=== PATIENT | male | born 1985 | race Caucasian/White ===

== ENCOUNTER 2016-06-19 21:24 | Emergency (ER) | payer BC ==
[2016-06-19 21:54] VITALS: BP 108/65; PULSE 77; RESP 20; TEMP 98
[2016-06-19] MEDS ORDERED: SULFAMETHOX-TMP 800-160MG 1 EACH TAB PO STA (22:21)
--- NOTE | 2016-06-19 22:27 | ED ---
Skin/Abscess/FB HPI - General Chief complaint: Skin/Abscess/Foreign Body Stated complaint: Lump on lower back Time Seen by Provider: 06/19/16 22:02 Source: patient Mode of arrival: ambulatory Limitations: no limitations - History of Present Illness Initial comments: Patient is a 30-year-old white male presenting to the emergency department with complaints of a pimple to his lower back. Patient states he has had the pimple for probably 2 months but over the last couple of days it started to become more painful and red. Patient states that he had his son attempted to drain the pimple at home but it was too painful. Patient denies similar symptoms in the past. Patient denies history of MRSA. Patient denies recent illness, fevers, nausea, vomiting, shortness breath, chest pain, abdominal pain, or myalgias. Patient states his tetanus shot was less than 5 years ago. Patient denies recent antibiotic use. MD complaint: abscess/boil - Related Data Previous Rx's Medication Instructions Recorded Sulfamethox-Tmp 800-160Mg [Bactrim 1 tab PO Q12HR #20 tab 06/19/16 DS 800-160 mg] Allergies Allergy/AdvReac Type Severity Reaction Status Date / Time venom-honey bee Allergy Swelling Verified 06/19/16 21:54 [bee venom (honey bee)] amoxicillin [Amoxicillin] AdvReac Rash/Hives Verified 06/19/16 21:54 Penicillins AdvReac Rash/Hives Verified 06/19/16 21:54 Review of Systems ROS Statement: Those systems with pertinent positive or pertinent negative responses have been documented in the HPI. ROS Other: All systems not noted in ROS Statement are negative. Past Medical History Past Medical History: No Reported History Additional Past Medical History / Comment(s): BURPING ALOT, EXCESS GAS. History of Any Multi-Drug Resistant Organisms: None Reported Past Surgical History: No Surgical Hx Reported Additional Past Surgical History / Comment(s): EXC WISDOM TEETH Past Anesthesia/Blood Transfusion Reactions: No Reported Reaction Past Psychological History: Depression Smoking Status: Current every day smoker Past Alcohol Use History: None Reported Past Drug Use History: None Reported - Past Family History Mother Family Medical History: No Reported History General Exam - General Exam Comments Initial Comments: GENERAL: Pt awake and alert, well-appearing, well-nourished, and in no acute distress. HEAD: Atraumatic, normocephalic. EYES: Pupils equal, round, and reactive to light, extraocular movements intact, sclera anicteric, conjunctiva are normal. ENT: Oropharynx clear without exudates. Moist mucous membranes. NECK:Supple without lymphadenopathy or JVD. LUNGS: Breath sounds clear to auscultation bilaterally. No wheezes, rales, or rhonchi. HEART: Heart S1, S2, no S3 or S4. Regular rate and rhythm. No murmurs, rubs or gallops. ABDOMEN: Soft, nontender, nondistended, normoactive bowel sounds. No guarding, no rebound. No masses or organomegaly appreciated. EXTREMITIES: Palpable peripheral pulses. No edema. No calf tenderness. NEUROLOGICAL: Pt oriented x 3. No focal deficits noted. Strength and sensation grossly intact. PSYCH: Normal mood, normal affect. SKIN: Warm, dry, intact. 1 cm abscess with minimal induration and minimal erythema noted to mid lower back with small amount of purulent drainage. Limitations: no limitations Course Vital Signs 06/19/16 21:52 Temperature 98.0 F Pulse Rate 77 Respiratory 20 Rate Blood Pressure 108/65 O2 Sat by Pulse 99 Oximetry Procedures - Incision & Drainage Consent Obtained: verbal consent Time Out Performed?: No Indication: Abscess Site: other (Lower back) Anesthetic Used: lidocaine 1% Amount (mLs): 1 I&D Cleaning Method: Alcohol Wipe, Iodine Sterile Field Used?: Yes Scalpel Used: #11 Needle Aspiration Performed?: No Irrigation Performed?: Yes I&D Drainage Obtained: Blood Culture Obtained?: Yes Patient Tolerated Procedure: well, no complications Medical Decision Making - Medical Decision Making Abscess to mid lower back. Incision and drainage performed at bedside. Patient tolerated well. Patient discharged home on Bactrim and instructed to follow-up with primary care physician. Patient agreed with treatment plan. Patient instructed to return to the emergency department with new or worsening symptoms. Discharge instructions and return parameters reviewed. Disposition Clinical Impression: Abscess of back Disposition: HOME SELF-CARE Condition: Good Instructions: Abscess Incision and Drainage (ED) Additional Instructions: Finish antibiotic as prescribed. Apply warm compresses 3 times a day to help promote drainage. Continue Motrin or Tylenol for pain as needed. Please follow -up with primary care physician as directed for wound check. Please return to the emergency department with worsening symptoms such as increased pain, swelling, redness, fevers, nausea, vomiting, chills, or bodyaches. Prescriptions: Sulfamethox-Tmp 800-160Mg [Bactrim DS 800-160 mg] 1 tab PO Q12HR #20 tab Referrals: Bassem Weiner DO [Primary Care Provider] - 1-2 days Time of Disposition: 22:25
== END 2016-06-19 22:34 | disposition home or self-care (01) ==
LOC: EC 21:24
DX: L02.212 Cutaneous abscess of back [any part, except buttock and flank] (principal); F17.200 Nicotine dependence, unspecified, uncomplicated; Z88.0 Allergy status to penicillin; Z91.030 Bee allergy status
CPT/HCPCS: 10060; 87070; 87205; 99283

== ENCOUNTER → 2024-01-03 | Outpatient (CLI) | payer MEDICAID, OTHER ==
--- NOTE | 2024-01-03 11:07 | MR ---
EXAMINATION TYPE: MR shoulder RT wo con DATE OF EXAM: 01/03/2024 COMPARISON: 09/10/2011 HISTORY: Right shoulder pain, injured playing softball 2 wks ago. TECHNIQUE: Multiplanar, multisequence imaging of the right shoulder is performed without contrast. FINDINGS: Rotator Cuff: Intrasubstance signal noted involving the anterior fibers of the infraspinatus tendon c ompatible with mild tendinosis. Subscapularis and supraspinatus tendons are intact and there is no ev idence of through thickness tear or retraction. Trace amount of fluid in the subacromial bursa. Downs loping lateral margin of the acromion can occasionally be associated with impingement. Acromioclavicular Joint: There is mild to moderate narrowing of the AC joint with adjacent reactive m arrow edema. Glenohumeral Joint: No joint effusion. Labrum: The labrum appears grossly intact given limitation of non-arthrogram study. Biceps Tendon: The long head of biceps is in normal location within bicipital groove. Bone marrow signal: Marrow edema involving the acromion and clavicle at the level of the AC joint lik carrington related to reactive edema. IMPRESSION: 1. Mild intrasubstance signal at the insertion of the anterior fibers of the infraspinatus tendon com patible with mild tendinosis. 2. 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 Downsloping lateral mar gin of the acromium is stable and can be associated with intermittent impingement. [facility], , 01/03/2024 11:05 AM
== END | disposition home or self-care (01) ==
LOC: RADMRIMAIN 09:49
PROVIDERS: ATTEND Family Medicine
DX: S46.001A Unspecified injury of muscle(s) and tendon(s) of the rotator cuff of right shoulder, initial encounter (principal); M19.011 Primary osteoarthritis, right shoulder; R60.9 Edema, unspecified